=== PATIENT | male | born 1980 | race Caucasian/White ===

== ENCOUNTER 2020-12-30 07:26 | Emergency (ER) | payer OTHER ==
[~2020-12-30] VITALS: Ht 180.3 cm; Wt 97.5 kg
[2020-12-30 07:38] VITALS: Ht 180.3 cm; Wt 97.5 kg
[2020-12-30] MEDS ORDERED: POLYSPORIN1 OI1 TOP (09:46)
[2020-12-30] MEDS ORDERED: APAP325 MG PO (09:46)
[2020-12-30] MEDS ORDERED: KEPPRA500 MG PO (09:46)
[2020-12-30 10:22] VITALS: BP 95/56
== END 2020-12-30 10:22 | disposition home or self-care (01) ==
LOC: ED 07:26
DX: S01.01XA Laceration without foreign body of scalp, initial encounter (principal); W18.30XA Fall on same level, unspecified, initial encounter; Y93.89 Activity, other specified; Y92.89 Other specified places as the place of occurrence of the external cause; Y99.8 Other external cause status
CPT/HCPCS: 82962; 90715